=== PATIENT | female | born 1990 | race American Indian/Alaskan Native ===

== ENCOUNTER 2019-04-28 12:54 | Emergency (ER) | payer BC, MEDICAID ==
--- NOTE | 2019-04-28 13:05 | Emergency Department Report ---
Blank Doc - Documentation Documentation: 28 y o presents at 6 weeks gestation cc of vaginal spotting x last night denies dysuria, abd pain
[2019-04-28 13:45] LABS: Bacteria,Urine 1+ /HPF (Negative); Bilirubin,Urine NEG (Negative); Blood,Urine NEG (Negative); Color,Urine Amber (Yellow); Mucus,Urine 1+ /HPF; Urobilinogen,Urine < 2.0 mg/dL (<2.0)
--- NOTE | 2019-04-28 16:48 | Emergency Department Report ---
<SENAIT BRIGGS - Last Filed: 04/28/19 18:20> ED HPI - General Chief complaint: Vaginal Bleeding Stated complaint: SPOTTING Time Seen by Provider: 04/28/19 13:01 Source: patient Mode of arrival: Ambulatory Limitations: No Limitations - History of Present Illness Initial comments: This is a 28-year-old female who presents to the emergency room with spotting and . Patient states she believes she is possibly several weeks . She has not followed up with an CHIEF COUNSEL. She has an appointment with an CHIEF COUNSEL at [place] [address] Fonseca. She reports some vaginal discharge and back pain. Her last menstrual period was 03/06/2019, A1 miscarriage. Pacer is sports spotting started last night. She denies passing clots, dysuria, urinary frequency, urgency, and abdominal pain. MD Complaint: vaginal discharge -: Last night Location: other (low back pain) Radiation: none Severity: moderate Severity scale (0 -10): 8 Quality: cramping Consistency: intermittent Improves with: none Worsens with: none Associated symptoms: vaginal bleeding, vaginal discharge. denies: nausea/vomiting, abdominal pain, dysuria, headache, vision changes, malaise, dysparuenia, rash, seizure, shortness of breath, syncope, weakness Vaginal bleeding: light :: Yes Number of weeks : 7 OB History - Current : no complications OB History - Previous Pregnancies: miscarriage Last menstrual period: 03/06/19 Pre-katherine care: none - Related Data : 2 Para: 0 Ab: 1 (miscarriage) Home Medications Medication Instructions Recorded Confirmed Last Taken Losartan 100 mg PO DAILY 01/21/15 01/21/15 Unknown Previous Rx's Medication Instructions Recorded Last Taken Type HYDROcodone/APAP 10-325 [[place] 1 each PO Q6HR PRN #12 tablet 01/22/15 Unknown Rx 10/325] Lansoprazole (Nf) [Prevacid (Nf)] 30 mg PO QDAY #15 capsule 01/22/15 Unknown Rx Ondansetron [Zofran Odt] 4 mg PO Q6H PRN #8 tab.rapdis 01/22/15 Unknown Rx Clindamycin [Clindamycin CAP] 300 mg PO BID #14 cap 04/28/19 Unknown Rx Allergies Allergy/AdvReac Type Severity Reaction Status Date / Time No Known Allergies Allergy Unverified 01/21/15 21:06 ED Review of Systems Constitutional: denies: chills, fever Respiratory: denies: cough, shortness of breath, wheezing Cardiovascular: denies: chest pain, palpitations Gastrointestinal: denies: abdominal pain, nausea, diarrhea Genitourinary: other (spotting during ). denies: urgency, dysuria, discharge Musculoskeletal: back pain. denies: joint swelling, arthralgia Skin: denies: rash, lesions Neurological: denies: headache, weakness, paresthesias Psychiatric: denies: anxiety, depression ED Past Medical Hx - Past Medical History Previous Medical History?: Yes Hx Hypertension: Yes - Surgical History Past Surgical History?: No - Social History Smoking Status: Never Smoker Substance Use Type: None - Medications Home Medications: Home Medications Medication Instructions Recorded Confirmed Last Taken Type Losartan 100 mg PO DAILY 01/21/15 01/21/15 Unknown History HYDROcodone/APAP 10-325 [[place] 1 each PO Q6HR PRN #12 tablet 01/22/15 Unknown Rx 10/325] Lansoprazole (Nf) [Prevacid (Nf)] 30 mg PO QDAY #15 capsule 01/22/15 Unknown Rx Ondansetron [Zofran Odt] 4 mg PO Q6H PRN #8 tab.rapdis 01/22/15 Unknown Rx Clindamycin [Clindamycin CAP] 300 mg PO BID #14 cap 04/28/19 Unknown Rx ED Physical Exam - General Limitations: No Limitations General appearance: alert, in no apparent distress, obese (morbidly) - Respiratory Respiratory exam: Present: normal lung sounds bilaterally. Absent: respiratory distress - Cardiovascular Cardiovascular Exam: Present: regular rate, normal rhythm. Absent: systolic murmur, diastolic murmur, rubs, gallop - GI/Abdominal GI/Abdominal exam: Present: soft, normal bowel sounds, other (obese abdomen). Absent: tenderness, guarding, rebound, rigid - External exam: Present: normal external exam Speculum exam: Present: vaginal discharge (curdy white ). Absent: erythema, cervical discharge, vaginal bleeding, foreign body, tissue, laceration Bi-manual exam: Present: uterine enlargement. Absent: cervical motion tendernes, adnexal tenderness, adnexal mass, uterine tenderness - Back Exam Back exam: Absent: CVA tenderness (R), CVA tenderness (L) - Psychiatric Psychiatric exam: Present: normal affect, normal mood - Skin Skin exam: Present: warm, dry, intact, normal color. Absent: rash ED Medical Decision Making - Medical Decision Making Patient was examined by this provider. Vitals are normal and patient is in no acute distress. Obtained hCG quant, urinalysis, type and screen, wet prep & chlamydia and gonorrhea via wet prep. The hCG 6554 and unremarkable urinalysis. Wet prep positive for clue cells, negative trichomonas and yeast. US pending. Chart signed to [employer] ED Disposition Clinical Impression: Bacterial vaginosis, Threatened miscarriage Disposition: DC- TO HOME OR SELFCARE Condition: Stable Instructions: Bacterial Vaginosis (ED), Threatened Miscarriage (ED) Additional Instructions: Follow-up with a CHIEF COUNSEL doctor in 3-5 days or if symptoms worsen and continue return to emergency room as soon as possible. Return in 3-5 days for gonorrhea and chlamydia results. Prescriptions: Clindamycin [Clindamycin CAP] 300 mg PO BID #14 cap Referrals: MANASA CAMACHOMUNCIE MD ZEYAD [Primary Care Provider] - 3-5 Days PRIMARY CAREMD [Referring] - 3-5 Days NÉSTOR CHEUNG MD [Staff Physician] - 3-5 Days [facility] [Provider Group] - 3-5 Days Forms: Work/School Release Form(ED) <ZULMA CLAY - Last Filed: 04/28/19 21:24> ED Review of Systems ROS: Stated complaint: SPOTTING Other details as noted in HPI ED Course Vital Signs 04/28/19 13:02 Temperature 98.5 F Pulse Rate 84 Respiratory 16 Rate Blood Pressure 154/91 O2 Sat by Pulse 98 Oximetry ED Medical Decision Making - Lab Data Result diagrams: 04/28/19 19:46 - Medical Decision Making This is a 28-year-old female that was originally seen by Senait Briggs and was signed out to me for a pending ultrasound report. Ultrasound was reviewed and dictated by radiologist within normal limits. Patient and Senait stated she is not concerned about STD but I did instruct the patient to return in 3-5 daysto follow up with gonorrhea chlamydia results and if positive it is very necessary that she gets treated. I will discharge patient with clindamycin for bacterial vaginosis. Patient was instructed to Follow-up with a CHIEF COUNSEL doctor in 3-5 days or if symptoms worsen and continue return to emergency room as soon as possible. At time of discharge, the patient does not seem toxic or ill in appearance. No acute signs of distress noted. Patient agrees to discharge treatment plan of care. No further questions noted by the patient. Critical care attestation.: If time is entered above; I have spent that time in minutes in the direct care of this critically ill patient, excluding procedure time. ED Disposition Is pt being admited?: No Does the pt Need Aspirin: No
[2019-04-28 20:03] LABS: Basophils # (Auto) 0.1 K/mm3 (0.0-0.1); Basophils % (Auto) 0.8 % (0.0-1.8); Eosinophils # (Auto) 0.1 K/mm3 (0.0-0.4); Eosinophils % (Auto) 1.5 % (0.0-4.3); Hemoglobin 11.8 gm/dl (10.1-14.3); Lymphocytes # (Auto) 2.4 K/mm3 (1.2-5.4); Lymphocytes % (Auto) 32.7 % (13.4-35.0); Mean Corpuscular HGB Conc 34 % (30-34); Mean Corpuscular Volume 77 fl (79-97); Monocytes # (Auto) 0.4 K/mm3 (0.0-0.8); Monocytes % (Auto) 5.2 % (0.0-7.3); Platelet Count 379 K/mm3 (140-440); Red Blood Count 4.57 M/mm3 (3.65-5.03); Red Cell Distribution Width 17.7 % (13.2-15.2)
--- NOTE | 2019-04-28 21:18 | Ultrasound Report ---
PROCEDURE: US OB transabdominal and TRANSVAGINAL TECHNIQUE: Real-time transabdominal and transvaginal sonography of the uterus, placenta, amniotic fl uid, adnexa, and fetus was performed with image documentation. Measurements were obtained to determin e age/size. M-mode Doppler was used to document heartbeat. Transvaginal exam was not comp leted at patient's request HISTORY: vaginal bleeding and unknown gest COMPARISONS: None . FINDINGS: Uterus measures 11.5 x 5.5 x 7.7 cm CRL: Based on transabdominal measurement, 4.6 mm, which corresponds to a gestational age of: 6 week s, 1 days. Yolk Sac: Normal . Embryonic Cardiac Activity: 138 bpm . Gestational Sac: Normal . Right Ovary: Normal . Left Ovary: Not able to be visualized . Estimated delivery date: 12/21/2019 . Comment: Complete anatomic survey at 18-20 weeks suggested . IMPRESSION: 1. Single living intrauterine gestation at approximately 6 weeks 1 day, based on transabdominal imag es. Transvaginal exam was not completed, at the patient's request . 2. EDC by US 12/21/2019 . This document is electronically signed by Priyanka Boo MD., April 28 2019 09:16:18 PM ET
[2019-04-28 21:36] VITALS: BP 160/92
== END 2019-04-28 21:37 | disposition home or self-care (01) ==
LOC: ED 12:54
DX: O20.0 Threatened abortion (principal); O23.591 Infection of other part of genital tract in pregnancy, first trimester; B96.89 Other specified bacterial agents as the cause of diseases classified elsewhere; O16.1 Unspecified maternal hypertension, first trimester; Z79.899 Other long term (current) drug therapy; Z3A.01 Less than 8 weeks gestation of pregnancy
CPT/HCPCS: 36415; 76801; 76817; 81001; 84702; 85025; 86900; 86901; 87210; 87591; 96372